=== PATIENT | male | born 1985 | race Caucasian/White ===

== ENCOUNTER 2017-12-21 18:49 | Emergency (ER) | payer MEDICARE, MEDICAID ==
[~2017-12-21] VITALS: Ht 180.3 cm; Wt 110.5 kg
[~2017-12-21 18:49] MED LIST: CINA30 PO; DOXA2TAB2 PO; LABE200T28 PO; LORA0.5T2 PO; SEVE800T8 PO
[2017-12-21 19:09] VITALS: BP 152/93
== END 2017-12-22 | disposition left against medical advice (07) ==
LOC: ER 21:13
DX: M54.2 Cervicalgia (principal); I12.0 Hypertensive chronic kidney disease with stage 5 chronic kidney disease or end stage renal disease; N18.6 End stage renal disease; F12.10 Cannabis abuse, uncomplicated; Z99.2 Dependence on renal dialysis; Z98.890 Other specified postprocedural states
CPT/HCPCS: 99281

== ENCOUNTER 2018-11-15 11:40 | Inpatient (IN) | payer MEDICAID, MEDICARE ==
[~2018-11-15] VITALS: Ht 175.3 cm; Wt 123.4 kg
[2018-11-15 13:29] LABS: BASOPHILS % 0.7 % (0.0-2.0); EOSINOPHILS % 1.5 % (0.0-5.0); HEMATOCRIT. 32.6 % (42.0-52.0); HEMOGLOBIN. 10.8 g/dL (14.0-18.0); LYMPHOCYTES % 14.5 % (20.0-50.0); MEAN CORPUSCULAR HEMOGLOBIN 30.8 pg (28.0-32.0); MEAN CORPUSCULAR VOLUME 92.9 fL (80.0-94.0); MEAN PLATELET VOLUME 8.4 fl (7.4-10.4); MONOCYTES % 8.8 % (2.0-8.0); NEUTROPHILS % 74.5 % (40.0-76.0); PLATELET 161 x1000/uL (130-400); RED BLOOD CELL COUNT 3.51 mill/uL (4.7-6.1); RED CELL DISTRIBUTION WIDTH 15.3 % (11.6-14.6)
[2018-11-15 13:34] LABS: CHLORIDE 99 mEq/L (98-107)
[2018-11-15 13:45] LABS: INR 1.2; PROTHROMBIN TIME 11.8 sec (9.1-11.1)
[2018-11-15] MEDS ORDERED: CEFEPIME 1,000 MG in DEXTROSE 5% WATER 50 ML IV STA (14:08)
[2018-11-15] MEDS ORDERED: VANCOMYCIN 1 G PREMIX 200 ML IV STA (14:08)
[2018-11-15] MEDS ORDERED: BISACODYL 5MG TABLET PO PRN (15:45)
[2018-11-15] MEDS ORDERED: ONDANSETRON HCL 4MG/2ML INJ IV ONE (15:45)
[2018-11-15] MEDS ORDERED: MORPHINE SULFATE 4 MG/ML CPJ (NOT FOR IM USE) IV ONE (15:45)
[2018-11-15] MEDS ORDERED: ACETAMINOPHEN 500MG TABLET PO PRN (15:45)
[2018-11-15 16:41] LABS: CREATINE KINASE 310 IU/L (39-308)
[2018-11-15] MEDS ORDERED: NIFEDIPINE XL 60MG TAB PO SCH (17:00)
[2018-11-15] MEDS ORDERED: SEVELAMER CARBONATE 800 MG TABLET PO SCH (17:00)
[2018-11-15] MEDS: HYDROCODONE/APAP 7.5/325MG 1 TAB TABLET PO PRN (20:39)
[2018-11-15] MEDS ORDERED: EPOETIN ALFA 10000UNITS/ML VIAL SUBCUT SCH (21:00)
[2018-11-15 23:00] VITALS: BP 162/102
[2018-11-15] MEDS ORDERED: HYDROMORPHONE HCL/PF 2MG/ML CPJ IV PRN (23:00)
[2018-11-15] MEDS ORDERED: TEMAZEPAM 15MG CAPSULE PO PRN (23:00)
[2018-11-15] MEDS: SEVELAMER CARBONATE 800 MG TABLET PO SCH (23:33)
[2018-11-15] MEDS: LABETALOL HCL 200MG TABLET PO SCH (23:35)
[2018-11-15] MEDS: NIFEDIPINE XL 60MG TAB PO SCH (23:35)
[2018-11-15] MEDS: DOXAZOSIN MESYLATE 2MG TABLET PO SCH (23:36)
[2018-11-15] MEDS: ENOXAPARIN 40MG/0.4ML SYR SUBCUT SCH (23:36)
[2018-11-16] MEDS ORDERED: NIFE60TA64 PO (00:12)
[2018-11-16] MEDS ORDERED: CEFTRIAXONE 1,000 MG in DEXTROSE 5% WATER 50 ML IV SCH (01:00)
[2018-11-16 04:00] VITALS: BP 124/75
[2018-11-16] MEDS: LABETALOL HCL 200MG TABLET PO SCH ×2 (05:18→22:04)
[2018-11-16 06:49] LABS: BASOPHILS % 0.9 % (0.0-2.0); EOSINOPHILS % 2.5 % (0.0-5.0); HEMATOCRIT. 31.1 % (42.0-52.0); HEMOGLOBIN. 10.2 g/dL (14.0-18.0); LYMPHOCYTES % 16.5 % (20.0-50.0); MEAN CORPUSCULAR HEMOGLOBIN 30.8 pg (28.0-32.0); MEAN CORPUSCULAR VOLUME 93.8 fL (80.0-94.0); MEAN PLATELET VOLUME 8.3 fl (7.4-10.4); MONOCYTES % 8.6 % (2.0-8.0); NEUTROPHILS % 71.5 % (40.0-76.0); PLATELET 161 x1000/uL (130-400); RED BLOOD CELL COUNT 3.32 mill/uL (4.7-6.1); RED CELL DISTRIBUTION WIDTH 15.5 % (11.6-14.6)
[2018-11-16 06:53] LABS: PHOSPHORUS 4.7 mg/dL (2.5-4.9)
[2018-11-16 08:00] VITALS: BP 166/105
[2018-11-16] MEDS: CINACALCET HCL 60MG TABLET PO SCH (08:42)
[2018-11-16] MEDS: FOLIC ACID/VITAMIN B COMP W-C TABLET PO SCH (08:42)
[2018-11-16] MEDS: DOCUSATE SODIUM 250MG CAPSULE PO SCH (08:42)
[2018-11-16] MEDS: SEVELAMER CARBONATE 800 MG TABLET PO SCH ×3 (08:44→17:13)
[2018-11-16 12:00] VITALS: BP 139/76
[2018-11-16] MEDS ORDERED: VANCOMYCIN 1 G PREMIX 200 ML IV SCH (13:30)
[2018-11-16 16:00] VITALS: BP 181/103
[2018-11-16 20:00] VITALS: BP 168/96
[2018-11-16] MEDS: ENOXAPARIN 40MG/0.4ML SYR SUBCUT SCH (21:58)
[2018-11-16] MEDS: NIFEDIPINE XL 60MG TAB PO SCH (21:59)
[2018-11-16] MEDS: DOXAZOSIN MESYLATE 2MG TABLET PO SCH (22:04)
[2018-11-16] MEDS: HYDROCODONE/APAP 7.5/325MG 1 TAB TABLET PO PRN (23:51)
[2018-11-17] VITALS: BP 163/97
[2018-11-17 04:00] VITALS: BP 151/87
[2018-11-17] MEDS: LABETALOL HCL 200MG TABLET PO SCH ×3 (06:42→20:51)
[2018-11-17 06:49] LABS: BASOPHILS % 0.6 % (0.0-2.0); HEMATOCRIT. 31.6 % (42.0-52.0); HEMOGLOBIN. 10.4 g/dL (14.0-18.0); LYMPHOCYTES % 12.8 % (20.0-50.0); MEAN CORPUSCULAR HEMOGLOBIN 30.9 pg (28.0-32.0); MEAN CORPUSCULAR VOLUME 93.6 fL (80.0-94.0); MEAN PLATELET VOLUME 7.7 fl (7.4-10.4); MONOCYTES % 7.8 % (2.0-8.0); NEUTROPHILS % 76.8 % (40.0-76.0); PLATELET 189 x1000/uL (130-400); RED BLOOD CELL COUNT 3.37 mill/uL (4.7-6.1); RED CELL DISTRIBUTION WIDTH 15.5 % (11.6-14.6)
[2018-11-17 08:00] VITALS: BP 153/89
[2018-11-17] MEDS: DOCUSATE SODIUM 250MG CAPSULE PO SCH ×2 (09:00→09:34)
[2018-11-17] MEDS: FOLIC ACID/VITAMIN B COMP W-C TABLET PO SCH (09:33)
[2018-11-17] MEDS: SEVELAMER CARBONATE 800 MG TABLET PO SCH ×3 (09:33→18:11)
[2018-11-17] MEDS: CINACALCET HCL 60MG TABLET PO SCH ×2 (09:34→18:11)
[2018-11-17] MEDS: NIFEDIPINE XL 60MG TAB PO SCH ×2 (09:35→20:50)
[2018-11-17] MEDS ORDERED: DOXAZOSIN MESYLATE 2MG TABLET PO NR (10:45)
[2018-11-17 12:00] VITALS: BP 151/70
[2018-11-17 16:00] VITALS: BP 131/87
[2018-11-17] MEDS: DOXAZOSIN MESYLATE 2MG TABLET PO SCH (18:11)
[2018-11-17 20:00] VITALS: BP 134/79
[2018-11-17] MEDS: ENOXAPARIN 40MG/0.4ML SYR SUBCUT SCH (20:50)
[2018-11-18] VITALS: BP 140/80
[2018-11-18] MEDS: LABETALOL HCL 200MG TABLET PO SCH ×3 (05:39→21:54)
[2018-11-18 06:40] VITALS: BP 134/75
[2018-11-18 06:57] LABS: HEMATOCRIT. 31.4 % (42.0-52.0); HEMOGLOBIN. 10.5 g/dL (14.0-18.0); LYMPHOCYTES % 15.8 % (20.0-50.0); MEAN CORPUSCULAR HEMOGLOBIN 31.4 pg (28.0-32.0); MEAN CORPUSCULAR VOLUME 93.6 fL (80.0-94.0); MEAN PLATELET VOLUME 8.1 fl (7.4-10.4); MONOCYTES % 6.9 % (2.0-8.0); NEUTROPHILS % 73.3 % (40.0-76.0); PLATELET 211 x1000/uL (130-400); RED BLOOD CELL COUNT 3.35 mill/uL (4.7-6.1); RED CELL DISTRIBUTION WIDTH 15.4 % (11.6-14.6)
[2018-11-18 08:00] VITALS: BP 137/79
[2018-11-18] MEDS: DOXAZOSIN MESYLATE 2MG TABLET PO SCH ×2 (09:00→18:45)
[2018-11-18] MEDS: SEVELAMER CARBONATE 800 MG TABLET PO SCH ×3 (09:00→18:50)
[2018-11-18] MEDS: NIFEDIPINE XL 60MG TAB PO SCH ×2 (09:00→21:53)
[2018-11-18] MEDS: DOCUSATE SODIUM 250MG CAPSULE PO SCH (09:00)
[2018-11-18] MEDS: FOLIC ACID/VITAMIN B COMP W-C TABLET PO SCH (09:17)
[2018-11-18 12:00] VITALS: BP 137/83
[2018-11-18 16:00] VITALS: BP 143/85
[2018-11-18] MEDS ORDERED: VANCOMYCIN 1 G PREMIX 200 ML IV NR (18:00)
[2018-11-18] MEDS: CINACALCET HCL 60MG TABLET PO SCH (18:45)
[2018-11-18 20:00] VITALS: BP 150/88
[2018-11-18] MEDS: ENOXAPARIN 40MG/0.4ML SYR SUBCUT SCH (21:55)
[2018-11-19] VITALS (7 sets, daily range): BP systolic 131–171; BP diastolic 78–111
[2018-11-19] MEDS: HYDROCODONE/APAP 7.5/325MG 1 TAB TABLET PO PRN (02:10)
[2018-11-19] MEDS: LABETALOL HCL 200MG TABLET PO SCH ×3 (05:17→22:04)
[2018-11-19] MEDS: SEVELAMER CARBONATE 800 MG TABLET PO SCH ×3 (08:20→17:40)
[2018-11-19] MEDS: DOCUSATE SODIUM 250MG CAPSULE PO SCH (08:20)
[2018-11-19] MEDS: FOLIC ACID/VITAMIN B COMP W-C TABLET PO SCH (08:20)
[2018-11-19] MEDS: DOXAZOSIN MESYLATE 2MG TABLET PO SCH ×2 (08:20→16:19)
[2018-11-19] MEDS: NIFEDIPINE XL 60MG TAB PO SCH ×2 (08:20→21:06)
[2018-11-19] MEDS: CLINDAMYCIN 600MG PREMIX 50 ML IV SCH (16:16)
[2018-11-19] MEDS: CINACALCET HCL 60MG TABLET PO SCH (16:19)
[2018-11-19] MEDS: ENOXAPARIN 40MG/0.4ML SYR SUBCUT SCH (21:06)
[2018-11-20] VITALS: BP 128/89
[2018-11-20] MEDS: CLINDAMYCIN 600MG PREMIX 50 ML IV SCH ×3 (02:11→18:16)
[2018-11-20 04:00] VITALS: BP 154/94
[2018-11-20] MEDS: LABETALOL HCL 200MG TABLET PO SCH ×4 (05:04→21:31)
[2018-11-20 06:24] LABS: PHOSPHORUS 4.5 mg/dL (2.5-4.9)
[2018-11-20 06:47] LABS: BASOPHILS % 1.1 % (0.0-2.0); EOSINOPHILS % 3.1 % (0.0-5.0); HEMATOCRIT. 30.9 % (42.0-52.0); HEMOGLOBIN. 10.3 g/dL (14.0-18.0); LYMPHOCYTES % 13.4 % (20.0-50.0); MEAN CORPUSCULAR HEMOGLOBIN 31.1 pg (28.0-32.0); MEAN CORPUSCULAR VOLUME 93.6 fL (80.0-94.0); MEAN PLATELET VOLUME 7.9 fl (7.4-10.4); MONOCYTES % 6.6 % (2.0-8.0); NEUTROPHILS % 75.8 % (40.0-76.0); PLATELET 225 x1000/uL (130-400); RED CELL DISTRIBUTION WIDTH 15.1 % (11.6-14.6)
[2018-11-20 08:00] VITALS: BP 124/73
[2018-11-20] MEDS: DOCUSATE SODIUM 250MG CAPSULE PO SCH (08:12)
[2018-11-20] MEDS: FOLIC ACID/VITAMIN B COMP W-C TABLET PO SCH (08:13)
[2018-11-20] MEDS: SEVELAMER CARBONATE 800 MG TABLET PO SCH ×3 (08:13→18:18)
[2018-11-20] MEDS: NIFEDIPINE XL 60MG TAB PO SCH ×2 (09:00→21:32)
[2018-11-20] MEDS: DOXAZOSIN MESYLATE 2MG TABLET PO SCH ×2 (09:00→18:17)
[2018-11-20 11:59] VITALS: BP 138/81
[2018-11-20 16:00] VITALS: BP 166/105
[2018-11-20] MEDS ORDERED: VANCOMYCIN 1 G PREMIX 200 ML IV NR (18:00)
[2018-11-20] MEDS: CINACALCET HCL 60MG TABLET PO SCH (18:18)
[2018-11-20 20:00] VITALS: BP 157/93
[2018-11-20] MEDS: ENOXAPARIN 40MG/0.4ML SYR SUBCUT SCH (21:30)
[2018-11-21] VITALS: BP 128/61
[2018-11-21] MEDS: CLINDAMYCIN 600MG PREMIX 50 ML IV SCH ×2 (02:00→08:26)
[2018-11-21 04:00] VITALS: BP 150/94
[2018-11-21] MEDS: LABETALOL HCL 200MG TABLET PO SCH ×2 (06:19→12:39)
[2018-11-21 08:00] VITALS: BP 139/83
[2018-11-21] MEDS: DOCUSATE SODIUM 250MG CAPSULE PO SCH (08:16)
[2018-11-21] MEDS: DOXAZOSIN MESYLATE 2MG TABLET PO SCH (08:17)
[2018-11-21] MEDS: NIFEDIPINE XL 60MG TAB PO SCH (08:17)
[2018-11-21] MEDS: SEVELAMER CARBONATE 800 MG TABLET PO SCH ×2 (08:17→12:40)
[2018-11-21] MEDS: FOLIC ACID/VITAMIN B COMP W-C TABLET PO SCH (08:17)
[2018-11-21] MEDS ORDERED: NIFE60TA78 MT (11:28)
[2018-11-21] MEDS ORDERED: CINA60 MT (11:28)
[2018-11-21] MEDS ORDERED: LINE600T MT (11:28)
[2018-11-21] MEDS ORDERED: FOLI1TAB87 MT (11:38)
[2018-11-21] MEDS ORDERED: DOXA4TAB3 MT (11:38)
[2018-11-21 11:41] VITALS: BP_SYST 139; BP_SYST 146; BP_DIAS 83; BP_DIAS 97
[2018-11-21 12:00] VITALS: BP 146/97
[2018-11-21 13:07] LABS: MYOGLOBIN SERUM 322 ng/mL (28-72)
[2018-11-22 06:18] LABS: COMPLEMENT C3 124 mg/dL (82-167)
== END 2018-11-21 12:59 | disposition home or self-care (01) | DRG 871 ==
LOC: ER 11:40 → 8WST 14:14 → EDBEDREQ 14:18 → ENRESERV 21:08
PROC: 5A1D70Z Performance of Urinary Filtration, Intermittent, Less than 6 Hours Per Day (ICD-10-PCS; 2018-11-16)
PROC: 5A1D70Z Performance of Urinary Filtration, Intermittent, Less than 6 Hours Per Day (ICD-10-PCS; 2018-11-18)
PROC: 5A1D70Z Performance of Urinary Filtration, Intermittent, Less than 6 Hours Per Day (ICD-10-PCS; 2018-11-19)
PROC: 5A1D70Z Performance of Urinary Filtration, Intermittent, Less than 6 Hours Per Day (ICD-10-PCS; principal; 2018-11-20)
DX: A41.9 Sepsis, unspecified organism (principal); N18.6 End stage renal disease; L03.115 Cellulitis of right lower limb; I13.2 Hypertensive heart and chronic kidney disease with heart failure and with stage 5 chronic kidney disease, or end stage renal disease; I50.30 Unspecified diastolic (congestive) heart failure; I42.2 Other hypertrophic cardiomyopathy; N25.81 Secondary hyperparathyroidism of renal origin; I42.1 Obstructive hypertrophic cardiomyopathy; Z68.41 Body mass index [BMI] 40.0-44.9, adult; R65.20 Severe sepsis without septic shock; D64.9 Anemia, unspecified; E66.9 Obesity, unspecified; F43.21 Adjustment disorder with depressed mood; F12.90 Cannabis use, unspecified, uncomplicated; N05.9 Unspecified nephritic syndrome with unspecified morphologic changes; Z99.2 Dependence on renal dialysis; Z79.899 Other long term (current) drug therapy; Z83.3 Family history of diabetes mellitus
CPT/HCPCS: 36415; 71045; 73718; 80048; 80202; 82550; 83605; 84100; 84145; 84484; 85651; 86160; 86162; 87804; 93005; 93970; 96374; 99285; J0692; J0696; J1650; J2270; J2405; J3370; J3490; J7040; J7050; J7060

== ENCOUNTER 2020-09-17 21:53 | Inpatient (IN) | payer MEDICARE, MEDICAID ==
[~2020-09-17] VITALS: Ht 175.3 cm; Wt 106.7 kg
[~2020-09-17 21:53] MED LIST changes: -CINA30 PO; +CINA60 MT; -DOXA2TAB2 PO; +DOXA4TAB3 MT; +FOLI1TAB87 MT; +LINE600T11 MT; -LORA0.5T2 PO; +NIFE60TA78 MT
[2020-09-17 22:50] LABS: HEMATOCRIT 25.2 % (42.0-52.0); HEMOGLOBIN 8.6 g/dL (14.0-18.0); MEAN CORPUSCULAR HEMOGLOBIN 31.8 pg (28.0-32.0); PLATELET 147 x1000/uL (130-400); RED BLOOD CELL COUNT 2.71 mill/uL (4.7-6.1); RED CELL DISTRIBUTION WIDTH 14.1 % (11.6-14.6)
[2020-09-17 22:57] LABS: CHLORIDE 95 mEq/L (98-107)
[2020-09-17] MEDS ORDERED: FUROSEMIDE 100MG/10ML VIAL IV STA (23:12)
[2020-09-17] MEDS ORDERED: SODIUM BICARBONATE 8.4% 1 MEQ/ML 50ML SYR IV ONE (23:15)
[2020-09-17] MEDS ORDERED: CALCIUM CHLORIDE 1GM/10ML SYR IV ONE (23:15)
[2020-09-17] MEDS ORDERED: DEXTROSE 50% WATER 50ML SYRINGE IV ONE (23:15)
[2020-09-17] MEDS ORDERED: INSULIN REGULAR (HUMULIN R) 300UNITS/3ML VIAL IV ONE (23:15)
[2020-09-17] MEDS ORDERED: ALBUTEROL (0.083%) 2.5MG/3ML NEB HHN ONE (23:15)
[2020-09-18] MEDS ORDERED: ASPIRIN 325MG EC TABLET PO ONE (00:30)
[2020-09-18] MEDS ORDERED: DIPHENHYDRAMINE 50MG/ML VIAL IV PRN (03:15)
[2020-09-18] MEDS ORDERED: ACETAMINOPHEN 325MG TABLET PO PRN (03:15)
[2020-09-18] MEDS ORDERED: GUAIFENESIN 200MG/10ML SUGAR FREE UDC PO PRN (03:15)
[2020-09-18] MEDS ORDERED: ONDANSETRON HCL 4MG/2ML INJ IV PRN (03:15)
[2020-09-18] MEDS ORDERED: CEFTRIAXONE 1 G PREMIX 50 ML IV SCH (04:00)
[2020-09-18] MEDS ORDERED: LISINOPRIL 40MG TABLET PO SCH (04:00)
[2020-09-18] MEDS: AMLODIPINE 10MG TABLET PO SCH (04:32)
[2020-09-18] MEDS ORDERED: AZITHROMYCIN 500 MG in DEXT 5% WATER 250 ML IV SCH (05:00)
[2020-09-18] MEDS ORDERED: ALBUTEROL (0.083%) 2.5MG/3ML NEB HHN SCH (06:30)
[2020-09-18] MEDS: MAGNESIUM/ALUMINUM HYDROXIDE/SIMETHICONE 30ML UDC PO PRN (06:33)
[2020-09-18] MEDS ORDERED: SODIUM POLYSTYRENE SULFONATE 15 G/60 ML BOT PO NR ×2 (10:00→17:00)
[2020-09-18 15:31] VITALS: BP 206/85
[2020-09-18] MEDS ORDERED: AMLO10TA80 MT (15:49)
[2020-09-18 20:00] VITALS: BP 179/96
[2020-09-18] MEDS ORDERED: EPOETIN ALFA-EPBX 10,000 UNIT/ML VIAL SUBCUT SCH (21:00)
[2020-09-18] MEDS: CLONIDINE 0.1MG TABLET PO PRN (21:31)
[2020-09-19] VITALS: BP 154/82
[2020-09-19 04:00] VITALS: BP 145/72
[2020-09-19 08:00] VITALS: BP 194/111
[2020-09-19] MEDS: AMLODIPINE 10MG TABLET PO SCH ×2 (09:26→22:51)
[2020-09-19] MEDS: CLONIDINE 0.1MG TABLET PO PRN ×2 (09:32→17:49)
[2020-09-19 10:21] LABS: BASOPHILS % 0.9 % (0.0-2.0); HEMOGLOBIN. 7.7 g/dL (14.0-18.0); LYMPHOCYTES % 16.8 % (20.0-50.0); MEAN CORPUSCULAR HEMOGLOBIN 31.1 pg (28.0-32.0); MEAN CORPUSCULAR VOLUME 92.9 fL (80.0-94.0); MEAN PLATELET VOLUME 7.8 fl (7.4-10.4); MONOCYTES % 7.4 % (2.0-8.0); NEUTROPHILS % 70.9 % (40.0-76.0); PLATELET 140 x1000/uL (130-400); RED BLOOD CELL COUNT 2.47 mill/uL (4.7-6.1)
[2020-09-19 10:39] LABS: CHLORIDE 97 mEq/L (98-107)
[2020-09-19 10:50] LABS: LDL CHOLESTEROL 58 mg/dL (5-100)
[2020-09-19 10:51] LABS: HDL CHOLESTEROL 41 mg/dL (40-59)
[2020-09-19] MEDS: CEFTRIAXONE 1,000 MG in DEXTROSE 5% WATER 50 ML IV SCH (11:40)
[2020-09-19 11:49] VITALS: BP 173/101
[2020-09-19] MEDS: AZITHROMYCIN 500 MG in DEXT 5% WATER 250 ML IV SCH (12:00)
[2020-09-19 16:00] VITALS: BP 182/111
[2020-09-19] MEDS: MAGNESIUM/ALUMINUM HYDROXIDE/SIMETHICONE 30ML UDC PO PRN (17:48)
[2020-09-19 20:00] VITALS: BP 170/101
[2020-09-20] VITALS (7 sets, daily range): BP systolic 144–190; BP diastolic 78–108
[2020-09-20] MEDS: CLONIDINE 0.1MG TABLET PO PRN ×3 (01:13→20:19)
[2020-09-20] MEDS ORDERED: LABETALOL HCL 200MG TABLET PO SCH (06:30)
[2020-09-20 07:11] LABS: EOSINOPHILS % 5.2 % (0.0-5.0); HEMATOCRIT. 23.1 % (42.0-52.0); HEMOGLOBIN. 7.8 g/dL (14.0-18.0); LYMPHOCYTES % 21.4 % (20.0-50.0); MEAN CORPUSCULAR HEMOGLOBIN 31.4 pg (28.0-32.0); MEAN CORPUSCULAR VOLUME 93.2 fL (80.0-94.0); MEAN PLATELET VOLUME 8.2 fl (7.4-10.4); MONOCYTES % 7.8 % (2.0-8.0); NEUTROPHILS % 64.6 % (40.0-76.0); PLATELET 155 x1000/uL (130-400); RED BLOOD CELL COUNT 2.48 mill/uL (4.7-6.1); RED CELL DISTRIBUTION WIDTH 14.2 % (11.6-14.6)
[2020-09-20] MEDS: CEFTRIAXONE 1,000 MG in DEXTROSE 5% WATER 50 ML IV SCH (10:12)
[2020-09-20] MEDS: AZITHROMYCIN 500 MG in DEXT 5% WATER 250 ML IV SCH (10:12)
[2020-09-20] MEDS: MAGNESIUM/ALUMINUM HYDROXIDE/SIMETHICONE 30ML UDC PO PRN (17:43)
== END 2020-09-20 22:36 | disposition home or self-care (01) | DRG 640 ==
LOC: ER 21:53 → 7WST 23:36 → ENRESERV 09-18 12:29
PROVIDERS: ADMIT Hospitalist; ATTEND Hospitalist
PROC: 5A1D70Z Performance of Urinary Filtration, Intermittent, Less than 6 Hours Per Day (ICD-10-PCS; principal; 2020-09-18)
PROC: 5A1D70Z Performance of Urinary Filtration, Intermittent, Less than 6 Hours Per Day (ICD-10-PCS; 2020-09-19)
DX: E87.5 Hyperkalemia (principal); I50.33 Acute on chronic diastolic (congestive) heart failure; N18.6 End stage renal disease; I13.2 Hypertensive heart and chronic kidney disease with heart failure and with stage 5 chronic kidney disease, or end stage renal disease; I16.0 Hypertensive urgency; Z20.822 Contact with and (suspected) exposure to COVID-19; F12.90 Cannabis use, unspecified, uncomplicated; E66.9 Obesity, unspecified; F32.9 Major depressive disorder, single episode, unspecified; D64.9 Anemia, unspecified; Z68.34 Body mass index [BMI] 34.0-34.9, adult; Z86.718 Personal history of other venous thrombosis and embolism; Z91.19 Patient's noncompliance with other medical treatment and regimen; Z91.15 Patient's noncompliance with renal dialysis; Z99.2 Dependence on renal dialysis
CPT/HCPCS: 36415; 71045; 80048; 80053; 80061; 82962; 84484; 85025; 85027; 87635; 93005; 99285; J0456; J0696; J0885; J1815; J1940; J3490; J7060

== ENCOUNTER 2020-12-13 05:26 | Emergency (ER) | payer MEDICARE, MEDICAID ==
[~2020-12-13] VITALS: Ht 172.7 cm; Wt 82.0 kg
[~2020-12-13 05:26] MED LIST changes: +AMLO10TA80 MT; -DOXA4TAB3 MT; -LABE200T28 PO; +LABE200T9 PO; -LINE600T11 MT; -NIFE60TA78 MT
[2020-12-13 07:48] VITALS: BP 185/100
[2020-12-13 08:43] LABS: BASOPHILS % 1.6 % (0.0-2.0); EOSINOPHILS % 4.2 % (0.0-5.0); HEMATOCRIT. 28.9 % (42.0-52.0); HEMOGLOBIN. 9.7 g/dL (14.0-18.0); MEAN CORPUSCULAR HEMOGLOBIN 31.1 pg (28.0-32.0); MEAN CORPUSCULAR VOLUME 92.4 fL (80.0-94.0); MONOCYTES % 6.1 % (2.0-8.0); NEUTROPHILS % 69.1 % (40.0-76.0); PLATELET 138 x1000/uL (130-400); RED BLOOD CELL COUNT 3.13 mill/uL (4.7-6.1); RED CELL DISTRIBUTION WIDTH 14.3 % (11.6-14.6)
[2020-12-13 08:50] LABS: CHLORIDE 103 mEq/L (98-107)
[2020-12-13 08:52] LABS: INR 1.2; PROTHROMBIN TIME 12.4 sec (9.6-11.0)
[2020-12-16] MEDS ORDERED: CLON0.2T PO (16:08)
== END 2020-12-13 10:16 | disposition home or self-care (01) ==
LOC: ER 06:23
DX: T82.838A Hemorrhage due to vascular prosthetic devices, implants and grafts, initial encounter (principal); Y82.8 Other medical devices associated with adverse incidents; Y92.018 Other place in single-family (private) house as the place of occurrence of the external cause; I12.0 Hypertensive chronic kidney disease with stage 5 chronic kidney disease or end stage renal disease; N18.6 End stage renal disease; Z99.2 Dependence on renal dialysis; Z79.899 Other long term (current) drug therapy
CPT/HCPCS: 36415; 80053; 85025; 93005; 99284